=== PATIENT | male | born 1980 | race Two or more races ===

== ENCOUNTER → 2016-10-28 | Outpatient (CLI) | payer OTHER ==
--- NOTE | 2016-10-28 20:53 | REP ---
LEFT KNEE SERIES, FIVE VIEWS: HISTORY: Tear of the medial meniscus in the left knee. Five views of the left knee are presented. There is some cortical irregularity of the articular surface of the lateral femoral condyle consistent with cortical bone overgrowth and associated chondromalacia. This would be better displayed on MRI scanning. There is evidence of joint effusion. Joint spaces are preserved. No other cortical irregularity or erosive change is seen. Bones, joints and soft tissues are otherwise unremarkable. IMPRESSION: Cortical irregularity and bony overgrowth of the articular margin of the lateral femoral condyle, question cartilage degenerative lesion. Joint effusion. Consider correlation with MR findings. Signed by Matias Smith MD 10/29/2016 06:01 P
== END ==
LOC: M LRY 09:55
PROVIDERS: ATTEND Family Medicine
DX: S83.242A Other tear of medial meniscus, current injury, left knee, initial encounter (principal); X58.XXXA Exposure to other specified factors, initial encounter; Y93.9 Activity, unspecified; Y92.9 Unspecified place or not applicable; Y99.8 Other external cause status

== ENCOUNTER → 2020-01-28 | Outpatient (CLI) | payer OTHER | LOC: M LABSMTC 10:32 | PROVIDERS: ATTEND Family Medicine | DX: Z11.59 Encounter for screening for other viral diseases (principal); Z20.828 Contact with and (suspected) exposure to other viral communicable diseases ==

== ENCOUNTER → 2020-10-01 | Outpatient (CLI) | payer SELFPAY | LOC: M LABSMTC 18:23 | PROVIDERS: ATTEND Pediatrics | DX: Z20.828 Contact with and (suspected) exposure to other viral communicable diseases (principal) ==